=== PATIENT | female | born 1970 | race Caucasian/White ===

== ENCOUNTER 2025-05-07 14:14 | Emergency (ER) | payer OTHER ==
[2025-05-07 14:29] VITALS: RESP 18; TEMP 97.9; BMI 25.0
[2025-05-07] MEDS: ONDANSETRON 4 MG/2 ML VIAL IVPUSH ONE (15:22)
[2025-05-07] MEDS ORDERED: MECLIZINE HCL 25 MG TABLET (FP) ONE (15:23)
[2025-05-07] MEDS: MECLIZINE HCL 25 MG TABLET (FP) PO ONE (15:29)
[2025-05-07 15:37] LABS: ABSOLUTE IMMATURE GRANULOCYTES 0.03 x10^3/uL (0.0-0.031); BASOPHILS # 0.02 x10^3/uL (0.01-0.08); EOSINOPHIL % 0.4 % (0.7-5.8); EOSINOPHILS # 0.03 x10^3/uL (0.04-0.36); HEMATOCRIT 41.5 % (34.1-44.9); HEMOGLOBIN 14.1 g/dL (11.2-15.7); MEAN CELL VOLUME 85.4 fl (79.4-94.8); MEAN PLT VOLUME 12.1 fl (9.4-12.3); MONOCYTE % 3.9 % (4.7-12.5); PLATELET COUNT 280 x10^3/uL (182-369); RDW 11.4 % (12.3-16.6)
[2025-05-07 15:53] LABS: POTASSIUM 3.9 mmol/L (3.5-5.1)
[2025-05-07] MEDS: SODIUM CHLORIDE 0.9% 500 ML INFUS.BAG IV ONE (15:53)
[2025-05-07 15:56] LABS: CALCIUM 9.6 mg/dL (8.5-10.1)
[2025-05-07 15:57] LABS: ALBUMIN 3.8 g/dl (3.4-5.0); BLOOD UREA NITROGEN 16.8 mg/dL (7-18)
[2025-05-07 16:00] LABS: CREATININE 0.5 mg/dL (0.55-1.3)
[2025-05-07 16:01] LABS: BILIRUBIN,TOTAL 0.7 mg/dL (0.2-1); TOT PROT 7.5 g/dl (6.4-8.2)
[2025-05-07 16:24] LABS: URINE APPEARANCE CLEAR; URINE BILIRUBIN NEGATIVE (NEGATIVE); URINE COLOR YELLOW; URINE GLUCOSE (UA) 3+ (NEGATIVE); URINE KETONE 1+ (NEGATIVE); URINE LEUK ESTERASE NEGATIVE (NEGATIVE); URINE NITRITE NEGATIVE (NEGATIVE); URINE PROTEIN NEGATIVE (NEGATIVE); URINE UROBILINOGEN 0.2 mg/dL (0.2-1.0)
[2025-05-07 17:46] VITALS: BP 143/72; PULSE 57
== END 2025-05-07 17:57 | disposition home or self-care (01) ==
LOC: JER 14:14
DX: R42 Dizziness and giddiness (principal)
CPT/HCPCS: 0241U-QW; 36415; 80053; 81003; 84484; 85025; 87086; 93005; 93010; 99284-25